=== PATIENT | female | born 1990 | race Caucasian/White ===

== ENCOUNTER 2017-04-02 09:38 | Emergency (ER) | payer SELFPAY ==
--- NOTE | 2017-04-02 11:22 | ER Document Report ---
ED Respiratory Problem - General Chief Complaint: Productive Cough Stated Complaint: COUGH Time Seen by Provider: 04/02/17 10:57 Mode of Arrival: Ambulatory Information source: Patient Notes: 27-year-old female presents to ED for complaint of cough cold and congestion for 2 weeks. She states is not getting any better. Patient states she smokes a pack per day and has for a long time. TRAVEL OUTSIDE OF THE [place] IN LAST 30 DAYS: No - HPI Patient complains to provider of: Cough, Other - Smoker Onset: Other Duration: Intermittent episodes - 2 weeks Initiating Event: URI, Other - Smoker pack per day Severity: None Pain Level: Denies Context: Smoker Cough: Productive Sputum amount: Small - Phlegm Sputum color: Brown - Patient states phlegm Sputum consistency: Thick Associated symptoms: Congestion, Cough, PND, Runny nose, Sinus pain/pressure. denies: Fever Similar symptoms previously: Yes Recently seen / treated by doctor: No - Related Data Allergies/Adverse Reactions: No Known Allergies Allergy (Verified 04/02/17 10:52) Past Medical History - General Information source: Patient - Social History Smoking Status: Current Every Day Smoker Cigarette use (# per day): Yes - Pack per day Chew tobacco use (# tins/day): No Smoking Education Provided: Yes - 4 minutes Frequency of alcohol use: Occasional Drug Abuse: None Occupation: Seamstress at a factory making [employer] Lives with: Parents Family History: Arthritis, CAD, Hyperlipidemia, Hypertension, Malignancy. denies: COPD, CVA, DM, Thyroid Disfunction Patient has suicidal ideation: No Patient has homicidal ideation: No - Past Medical History Cardiac Medical History: Reports: None Pulmonary Medical History: Reports: Hx Bronchitis EENT Medical History: Reports: None Neurological Medical History: Reports: None Endocrine Medical History: Reports: None Renal/ Medical History: Reports: None Malignancy Medical History: Reports: None GI Medical History: Reports: None Musculoskeltal Medical History: Reports None Skin Medical History: Reports None Psychiatric Medical History: Reports: None Traumatic Medical History: Reports: None Infectious Medical History: Reports: None Past Surgical History: Reports: Hx Oral Surgery - [place] teeth - Immunizations Immunizations up to date: Yes Review of Systems - Review of Systems Constitutional: No symptoms reported EENT: Nose congestion, Nose discharge, Sinus pressure, Sinus discharge Cardiovascular: No symptoms reported Respiratory: Cough, Sputum Gastrointestinal: No symptoms reported Genitourinary: No symptoms reported Female Genitourinary: No symptoms reported Musculoskeletal: No symptoms reported Skin: No symptoms reported Hematologic/Lymphatic: No symptoms reported Neurological/Psychological: No symptoms reported -: Yes All other systems reviewed and negative Physical Exam - Vital signs Vitals: Temp Pulse Resp BP Pulse Ox 98.1 F 86 18 120/68 98 04/02/17 09:43 04/02/17 09:43 04/02/17 09:43 04/02/17 09:43 04/02/17 09:43 Interpretation: Normal - General General appearance: Appears well, Alert - HEENT Head: Normocephalic, Atraumatic Eyes: Normal Pupils: PERRL Ears: Normal External canal: Normal Tympanic membrane: Normal Sinus: Frontal, Tenderness Nasal: Purulent discharge, Swelling Mouth/Lips: Normal Mucous membranes: Normal Pharynx: Post nasal drainage Neck: Normal - Respiratory Respiratory status: No respiratory distress Chest status: Nontender Breath sounds: Productive cough. No: Rales, Rhonchi, Stridor, Wheezing Chest palpation: Normal - Cardiovascular Rhythm: Regular Heart sounds: Normal auscultation Murmur: No - Abdominal Inspection: Normal Distension: No distension Bowel sounds: Normal Tenderness: Nontender Organomegaly: No organomegaly - Back Back: Normal, Nontender - Extremities General upper extremity: Normal inspection, Nontender, Normal color, Normal ROM , Normal temperature General lower extremity: Normal inspection, Nontender, Normal color, Normal ROM , Normal temperature, Normal weight bearing. No: Dana's sign - Neurological Neuro grossly intact: Yes Cognition: Normal Orientation: AAOx4 Stephanie Coma Scale Eye Opening: Spontaneous Stephanie Coma Scale Verbal: Oriented Stephanie Coma Scale Motor: Obeys Commands [place] Coma Scale Total: 15 Speech: Normal Motor strength normal: LUE, RUE, LLE, RLE Sensory: Normal - Psychological Associated symptoms: Normal affect, Normal mood - Skin Skin Temperature: Warm Skin Moisture: Dry Skin Color: Normal Course - Re-evaluation Re-evalutation: 04/02/17 21:04 Patient was discharged early this afternoon after she was examined and her assessment was consistent with an upper respiratory infection. She was given Claritin and Sudafed Mucinex while in the emergency room she did go to x-ray which was negative and discussed with her and a written report given to her. Patient was instructed to follow-up with her primary doctor. - Vital Signs Vital signs: Temp Pulse Resp BP Pulse Ox 98.0 F 85 18 118/60 100 04/02/17 13:28 04/02/17 13:28 04/02/17 13:28 04/02/17 13:28 04/02/17 13:28 - Diagnostic Test Radiology reviewed: Image reviewed, Reports reviewed Discharge - Discharge Clinical Impression: URI (upper respiratory infection) Qualifiers: URI type: unspecified URI Qualified Code(s): J06.9 - Acute upper respiratory infection, unspecified Condition: Stable Disposition: HOME, SELF-CARE Instructions: Family Physicians / Practices Additional Instructions: UPPER RESPIRATORY ILLNESS: You have a viral infection of the respiratory passages -- a "cold." This common infection causes nasal congestion, drainage, and often sore throat and cough. It is highly contagious. The disease usually lasts about 10 to 14 days. There is no "cure" for the viral infection -- it must run its course. If there is a complication, such as bacterial infection in the nose, sinuses, middle ear, or bronchial tubes, antibiotics may be required. The antibiotics won't affect the virus. Drink plenty of fluids. A humidifier may help. An expectorant medication or decongestant may make you more comfortable. Use acetaminophen or ibuprofen for fever or aches. See the doctor if fever persists over two days, if there is any significant worsening of your symptoms, or if you simply fail to improve as expected. Given Claritin and Sudafed and Mucinex in the emergency room these are all over- the-counter medications that she can buy from the pharmacy. I also recommend Flonase for your symptoms. DECONGESTANT MEDICATION: A decongestant medicine has been suggested. Often this medicine is combined in the same tablet with an antihistamine or expectorant. This type of medicine is helpful in treating a bad cold or sinus condition, as well as in treatment of the nasal congestion of hay fever. It is not of much benefit for lung infections. Decongestant medicines are related to stimulants. They can cause an increase in blood pressure and heart rate. Persons with heart disease and high blood pressure should not take decongestants without discussing this with the physician. If you develop palpitations, chest pain, headache, or tremors, stop the medicine and consult your physician. COUGH-SUPPRESSANT & EXPECTORANT MEDICATION: You are to use a cough medication as needed for relief of symptoms. This medicine is a combination of an expectorant (to make the mucous thinner and more easily "coughed up") and a cough suppressant (to reduce the frequency of coughing). The cough-suppressant medicine is related to narcotics. You may experience mild nausea and sleepiness. Some patients who are very sensitive to narcotics may have stomach pain from this medicine. Taking the medicine with food reduces these side effects. Do not drive or work with machinery until you know how this medicine affects you. The expectorant should have no side effects. Iodine-containing expectorants (such as organidin) should not be taken by persons with active thyroid disease unless approved by your doctor. Call the doctor if you develop shortness of breath, hives, rash, itching, lightheadedness, or severe nausea and vomiting. USE OF ACETAMINOPHEN (Tylenol): Acetaminophen may be taken for pain relief or fever control. It's much safer than aspirin, offering a wider range of "safe" dosages. It is safe during . Some brand names are Tylenol, Panadol, Datril, Anacin 3, Tempra, and Liquiprin. Acetaminophen can be repeated every four hours. The following are maximum recommended dosages: >89 pounds or adults 650 mg to 900 mg Acetaminophen can be repeated every four hours. Maximum dose not to exceed 4000 mg a day. SMOKING: If you smoke, you should stop smoking. The tar and chemicals in cigarette smoke are harmful. Smoking has been shown to cause: emphysema chronic bronchitis lung cancer mouth and throat cancer stomach and pancreas cancer premature aging defects In addition, smoking increases ear and lung infections in children of smokers. FOLLOW-UP CARE: If you have been referred to a physician for follow-up care, call the physician s office for an appointment as you were instructed or within the next two days. If you experience worsening or a significant change in your symptoms, notify the physician immediately or return to the Emergency Department at any time for re-evaluation. Forms: Smoking Cessation Education, Return to Work
--- NOTE | 2017-04-02 12:05 | RADIOLOGY REPORT (SQ) ---
EXAM DESCRIPTION: CHEST PA/LAT COMPLETED DATE/TIME: 04/02/2017 11:38 am REASON FOR STUDY: cough for 3 weeks COMPARISON: None. EXAM PARAMETERS: NUMBER OF VIEWS: two views TECHNIQUE: Digital Frontal and Lateral radiographic views of the chest acquired. RADIATION DOSE: NA LIMITATIONS: none FINDINGS: LUNGS AND PLEURA: No opacities, masses or pneumothorax. No pleural effusion. MEDIASTINUM AND HILAR STRUCTURES: No masses or contour abnormalities. HEART AND VASCULAR STRUCTURES: Heart normal size. No evidence for failure. BONES: No acute findings. HARDWARE: None in the chest. OTHER: No other significant finding. IMPRESSION: NO SIGNIFICANT RADIOGRAPHIC FINDING IN THE CHEST. TECHNICAL DOCUMENTATION: JOB ID: [id number] [employer]- All Rights Reserved
[2017-04-02] MEDS ORDERED: LORATADINE 10 MG TABLET PO ONE (13:06)
[2017-04-02] MEDS ORDERED: PSEUDOEPHEDRINE HCL 30 MG TABLET PO ONE (13:06)
[2017-04-02] MEDS ORDERED: GUAIFENESIN 600 MG TABLET.SA PO ONE (13:06)
[2017-04-02 13:29] VITALS: BP 118/60
== END 2017-04-02 13:29 | disposition home or self-care (01) ==
LOC: ER 09:38
DX: J06.9 Acute upper respiratory infection, unspecified (principal); R05 Cough; R09.82 Postnasal drip; J34.89 Other specified disorders of nose and nasal sinuses; R09.81 Nasal congestion; F17.210 Nicotine dependence, cigarettes, uncomplicated; Z71.6 Tobacco abuse counseling
CPT/HCPCS: 71046; 99283; 99406

== ENCOUNTER 2019-09-22 11:44 | Emergency (ER) | payer MEDICAID ==
[2019-09-22 11:57] VITALS: BP 117/73
--- NOTE | 2019-09-22 12:41 | ER Document Report ---
ED Extremity Problem, Lower - General Chief Complaint: Toe Injury Stated Complaint: TOE PAIN Time Seen by Provider: 09/22/19 12:27 Mode of Arrival: Wheelchair Information source: Patient Notes: 29-year-old female presented to ED for laceration to the left great toe. She states she was going [place] on the boat on Saturday when she cut her toe at some point. She went to the doctor yesterday. She states they cleaned the toe gave her a tetanus shot started on the Cipro and cyclin and glued the wound. She states they put a Kerlix dressing on it and when she removed the Kerlix dressing the glue came off. She came to the emergency room because the glue came off with the dressing. TRAVEL OUTSIDE OF THE [place] IN LAST 30 DAYS: No - HPI Patient complains to provider of: Injury, Pain Location: Great Toe Occurred: Other - Saturday Where: Outdoors Onset/Duration: Intermittent Quality of pain: Sharp Severity: Moderate Pain Level: 4 Context: Laceration Recent injury: Yes Associated symptoms: Painful ambulation Exacerbated by: Hanging down, Movement, Walking Relieved by: Nothing - Related Data Allergies/Adverse Reactions: No Known Allergies Allergy (Verified 04/02/17 10:52) Home Medications: Claritin Past Medical History - General Information source: Patient - Social History Smoking Status: Current Every Day Smoker Cigarette use (# per day): Yes - Pack per day Smoking Education Provided: Yes - 4 minutes Frequency of alcohol use: Social Drug Abuse: None Lives with: Family Family History: Arthritis, CAD, Hyperlipidemia, Hypertension, Malignancy. denies: COPD, CVA, DM, Thyroid Disfunction - Past Medical History Cardiac Medical History: Reports: None Pulmonary Medical History: Reports: Hx Bronchitis EENT Medical History: Reports: None Neurological Medical History: Reports: None Endocrine Medical History: Reports: None Renal/ Medical History: Reports: None Malignancy Medical History: Reports: None GI Medical History: Reports: None Musculoskeletal Medical History: Reports None Skin Medical History: Reports None Psychiatric Medical History: Reports: None Traumatic Medical History: Reports: None Infectious Medical History: Reports: None Past Surgical History: Reports: Hx Oral Surgery - [place] teeth - Immunizations Immunizations up to date: Yes Hx Diphtheria, Pertussis, Tetanus Vaccination: Yes - 09/21/2019 Review of Systems - Review of Systems Constitutional: No symptoms reported EENT: No symptoms reported Cardiovascular: No symptoms reported Respiratory: No symptoms reported Gastrointestinal: No symptoms reported Genitourinary: No symptoms reported Female Genitourinary: No symptoms reported Musculoskeletal: No symptoms reported Skin: Other - Laceration to the underside of the left great toe where it joins the foot Hematologic/Lymphatic: No symptoms reported Neurological/Psychological: No symptoms reported Physical Exam - Vital signs Vitals: Temp Pulse Resp BP Pulse Ox 99.0 F 76 16 117/73 100 09/22/19 11:55 09/22/19 11:55 09/22/19 11:55 09/22/19 11:55 09/22/19 11:55 Interpretation: Normal - General General appearance: Appears well, Alert - HEENT Head: Normocephalic, Atraumatic Eyes: Normal Pupils: PERRL - Respiratory Respiratory status: No respiratory distress Chest status: Nontender Breath sounds: Normal Chest palpation: Normal - Cardiovascular Rhythm: Regular Heart sounds: Normal auscultation Murmur: No - Abdominal Inspection: Normal Distension: No distension Bowel sounds: Normal Tenderness: Nontender Organomegaly: No organomegaly - Back Back: Normal, Nontender - Extremities General upper extremity: Normal inspection, Nontender, Normal color, Normal ROM, Normal temperature General lower extremity: Normal inspection, Nontender, Normal color, Normal ROM, Normal temperature, Normal weight bearing. No: Dana's sign - Neurological Neuro grossly intact: Yes Cognition: Normal Orientation: AAOx4 Stephanie Coma Scale Eye Opening: Spontaneous Stephanie Coma Scale Verbal: Oriented Stephanie Coma Scale Motor: Obeys Commands [place] Coma Scale Total: 15 Speech: Normal Motor strength normal: LUE, RUE, LLE, RLE Sensory: Normal - Psychological Associated symptoms: Normal affect, Normal mood - Skin Skin Temperature: Warm Skin Moisture: Dry Skin Color: Normal Skin irregularity: Laceration Location of irregularity: Extremities - Left foot where it joins the great toe. She did this on Saturday was treated yesterday Course - Re-evaluation Re-evalutation: 09/22/19 12:44 Patient states she had glue applied to her laceration to the left big toe yesterday but when she took her dressing off today it took all the glue off. There is no glue to the wound site at this time. Wound does not look infected. Patient is alert oriented respirations regular nonlabored. She is on Cipro and doxycycline. I told her to please continue taking that medication as prescribed. I instructed her to soak her foot in Epson salt 3 times a day and to use bacitracin to the wound. Patient verbalized understanding agreement treatment plan patient was discharged home. Did give the patient a prescription for ibuprofen. - Vital Signs Vital signs: Temp Pulse Resp BP Pulse Ox 99.0 F 76 16 117/73 100 09/22/19 11:55 09/22/19 11:55 09/22/19 11:55 09/22/19 11:55 09/22/19 11:55 Discharge - Discharge Clinical Impression: Laceration of left great toe Qualifiers: Encounter type: initial encounter Damage to nail status: without damage Foreign body presence: without foreign body Qualified Code(s): S91.112A - Laceration without foreign body of left great toe without damage to nail, initial encounter Condition: Stable Disposition: HOME, SELF-CARE Additional Instructions: Foot Laceration A laceration on the foot will heal best if it remains undisturbed. Pressure on the stitch area from shoes or walking can prevent proper healing. Crutches are necessary if walking causes discomfort. Do not wear shoes that put pressure on the cut. If your feet tend to sweat, you must change the bandage frequently, allowing the area to dry before placing the new bandage. Keep the wound and dressing clean. Do not shower or bathe the area. If the dressing gets wet, remove it and blot the wound dry, then reapply a clean, dry dressing. Dressings should be changed every day, or even two or three times daily if your feet sweat. If any signs of infection occur (swelling, redness, increasing tenderness, red streaks, tender lumps in the groin above the laceration, or fever), see the doctor immediately. Antibiotic Ointment Protection Your wounds are such that dressing them is not practical or optional. After cleansing, you should apply a thin coating of antibiotic ointment (Bacitracin, not Neosporin) to the wounds at least three times daily. This lessens infection risk, and may decrease the amount of scarring. Use a q-tip or dull butter knife, not your finger, to apply this ointment. Any debris or ooze which builds up in the ointment should be gently rubbed off with a sterile gauze pad. Harder crusting may need to be gently scrubbed off with a clean wash cloth with soap and warm water, perhaps applying a warm, wet wash cloth to the wound for ten minutes first. Development of redness, severe itching, or blistering may mean allergy to the ointment. See the doctor. Epsom Salt Soaks Soak the wound area in a container of warm epsom salt water. If you can't get the wound area into a bucket or dasilva, use a folded towel soaked in the epsom salt solution and apply to the area. Use clean hot tap water (about the temperature of a very warm bath), mixing in about one (1) teaspoon for every pint of water. Two gallon --> 16 teaspoons Epsom Salts One gallon --> 8 teaspoons Epsom Salts Two quarts --> 4 teaspoons Epsom Salts One quart --> 2 teaspoons Epsom Salts Soak the wound for about 20 minutes while gently moving it around in the water. Repeat this four (4) times a day. Ibuprofen Ibuprofen is an excellent, safe drug for pain control. In addition, it has potent antiinflammatory effects which are beneficial, especially in the treatment of injuries, arthritis, or tendonitis. It's best to take ibuprofen with food. Persons with ulcer disease or allergy to aspirin should notify their physician of this before taking ibuprofen. Take the medication exactly as prescribed. Don't take additional doses unless instructed to do so by your doctor. If you develop wheezing, shortness of breath, hives, faintness, stomach pain, vomiting, or dark black stools, return for re-evaluation at once. Continue taking your antibiotics as prescribed. FOLLOW-UP CARE: If you have been referred to a physician for follow-up care, call the physicians office for an appointment as you were instructed or within the next two days. If you experience worsening or a significant change in your symptoms, notify the physician immediately or return to the Emergency Department at any time for re-evaluation. Prescriptions: Ibuprofen [Motrin 800 mg Tablet] 800 mg PO Q8H PRN #30 tab PRN Reason: Forms: Smoking Cessation Education Referrals: JENNIFER MORALES DPM [ACTIVE STAFF] - Follow up in 3-5 days
== END 2019-09-22 12:44 | disposition home or self-care (01) ==
LOC: ER 11:44
DX: S91.112A Laceration without foreign body of left great toe without damage to nail, initial encounter (principal); W45.8XXA Other foreign body or object entering through skin, initial encounter; Y93.89 Activity, other specified; Y92.814 Boat as the place of occurrence of the external cause; F17.210 Nicotine dependence, cigarettes, uncomplicated
CPT/HCPCS: 99282; 99406